=== PATIENT | female | born 1970 | race American Indian/Alaskan Native ===

== ENCOUNTER 2017-03-06 20:45 | Emergency (ER) | payer BC ==
[2017-03-06] MEDS ORDERED: DUONEB *Not for PRN Use IH ONE ×2 (21:47→22:00)
[2017-03-07] MEDS ORDERED: MAGNESIUM SULFATE IV ONE (03:10)
[2017-03-07] MEDS ORDERED: MAGNESIUM SULFATE 2GM/50ML 2 GM/50 ML BAG IV ONE (03:15)
--- NOTE | 2017-03-07 03:17 | Emergency Department Report ---
ED Asthma HPI - General Chief Complaint: Adult Asthma Stated Complaint: SANA/CHEST PAIN/ ASTHMA Time Seen by Provider: 03/07/17 03:01 Source: patient Mode of arrival: Ambulatory Limitations: No Limitations - History of Present Illness MD Complaint: "asthma attack", shortness of breath, wheezing -: Gradual, week(s) Asthma History: childhood onset, history of frequent attac Associated Symptoms: dry cough Treatments Prior to Arrival: inhaled bronchodilator, inhaled steroid - Related Data Home Medications Medication Instructions Recorded Confirmed Last Taken Ibuprofen/Famotidine [Duexis 1 tab PO Q8HR PRN 05/16/13 03/07/17 05/13/13 800-26.6 mg Tablet] Hydroxychloroquine [Plaquenil] 200 mg PO QDAY 02/10/16 03/07/17 Unknown Budesoni/Formotero 160-4.5(Nf) 2 puff IH BID 03/07/17 03/07/17 Unknown [Symbicort 160-4.5 (Nf)] Budesonide [Pulmicort] 0.5 mg IH Q12HR 03/07/17 03/07/17 Unknown Previous Rx's Medication Instructions Recorded Last Taken Type Montelukast [Singulair] 10 mg PO QPM #30 tablet 02/10/16 Unknown Rx Prednisone [predniSONE (Jenae) ER 40 mg PO QDAY #40 tablet. 03/07/17 Unknown Rx TAB] Allergies Allergy/AdvReac Type Severity Reaction Status Date / Time Penicillins Allergy Swelling Verified 05/16/13 07:35 powder in gloves AdvReac Itching Uncoded 05/16/13 07:35 ED Review of Systems ROS: Stated complaint: SANA/CHEST PAIN/ ASTHMA Other details as noted in HPI Comment: All other systems reviewed and negative Constitutional: denies: chills, fever Respiratory: cough, shortness of breath, wheezing Cardiovascular: denies: palpitations Gastrointestinal: denies: abdominal pain, nausea Genitourinary: denies: dysuria, frequency ED Past Medical Hx - Past Medical History Previous Medical History?: Yes Hx Arthritis: Yes Hx Asthma: Yes Additional medical history: connective tissue disease - Surgical History Past Surgical History?: Yes Additional Surgical History: 2 c sections - Social History Smoking Status: Never Smoker Substance Use Type: None - Medications Home Medications: Home Medications Medication Instructions Recorded Confirmed Last Taken Type Ibuprofen/Famotidine [Duexis 1 tab PO Q8HR PRN 05/16/13 03/07/17 05/13/13 History 800-26.6 mg Tablet] Hydroxychloroquine [Plaquenil] 200 mg PO QDAY 02/10/16 03/07/17 Unknown History Montelukast [Singulair] 10 mg PO QPM #30 tablet 02/10/16 03/07/17 Unknown Rx Budesoni/Formotero 160-4.5(Nf) 2 puff IH BID 03/07/17 03/07/17 Unknown History [Symbicort 160-4.5 (Nf)] Budesonide [Pulmicort] 0.5 mg IH Q12HR 03/07/17 03/07/17 Unknown History Prednisone [predniSONE (Jenae) ER 40 mg PO QDAY #40 tablet. 03/07/17 Unknown Rx TAB] ED Physical Exam - General Limitations: No Limitations General appearance: alert, in distress - Head Head exam: Present: normocephalic - Neck Neck exam: Present: normal inspection - Respiratory Respiratory exam: Present: respiratory distress, wheezes, rhonchi, decreased breath sounds, prolonged expiratory. Absent: rales, stridor, accessory muscle use - Cardiovascular Cardiovascular Exam: Present: regular rate, normal rhythm, normal heart sounds - Neurological Exam Neurological exam: Present: alert, oriented X3, CN II-XII intact - Skin Skin exam: Present: warm, intact ED Course Vital Signs 03/06/17 03/07/17 03/07/17 21:23 02:50 03:18 Temperature 98.6 F Pulse Rate 93 H Respiratory 24 17 Rate Blood Pressure 152/93 O2 Sat by Pulse 99 97 97 Oximetry 03/07/17 03:30 Temperature Pulse Rate 95 H Respiratory 14 Rate Blood Pressure 149/89 O2 Sat by Pulse 97 Oximetry - Reevaluation(s) Reevaluation #1: 03/07/17 04:13 Patient stated that she is feeling better last to follow UP with her PRIMARY CARE PHYSICIAN ED Medical Decision Making - Lab Data Result diagrams: 03/07/17 03:39 Critical care attestation.: If time is entered above; I have spent that time in minutes in the direct care of this critically ill patient, excluding procedure time. ED Disposition Clinical Impression: Asthma attack Disposition: DC-01 TO HOME OR SELFCARE Is pt being admited?: No Condition: Stable Prescriptions: Prednisone [predniSONE (Jenae) ER TAB] 40 mg PO QDAY #40 tablet. Referrals: PRIMARY CARE, [Primary Care Provider] - 3-5 Days
[2017-03-07] MEDS ORDERED: NACL 0.9% 1000 ML 1,000 ML IV ONE (03:28)
[2017-03-07 03:54] LABS: Hematocrit 39.5 % (30.3-42.9); Mean Corpuscular HGB Conc 33 % (30-34); Mean Corpuscular Hemoglobin 29 pg (28-32); Mean Corpuscular Volume 86 fl (79-97); Platelet Count 174 K/mm3 (140-440); Red Blood Count 4.58 M/mm3 (3.65-5.03); Red Cell Distribution Width 14.5 % (13.2-15.2); White Blood Count 7.7 K/mm3 (4.5-11.0)
[2017-03-07 04:12] LABS: Anion Gap 21 mmol/L; Blood Urea Nitrogen 14 mg/dL (7-17); Calcium 8.5 mg/dL (8.4-10.2); Carbon Dioxide 18 mmol/L (22-30); Chloride 99.3 mmol/L (98-107); Glucose 176 mg/dL (65-100); Sodium 134 mmol/L (137-145)
[2017-03-07 04:30] VITALS: BP 141/86
[2017-03-07 05:22] LABS: Anisocytosis RARE; Basophils % (Manual) 0 % (0.0-1.8); Blastocytes % (Manual) 0 %; Eosinophils % (Manual) 0 % (0.0-4.3); Large Platelets Few
[2017-03-07 05:23] LABS: Diff Status Complete
--- NOTE | 2017-03-07 09:59 | XRay Report ---
CHEST TWO VIEWS: 03/07/17 CLINICAL: Shortness of breath. COMPARISON: 03/23/13 FINDINGS: Normal heart and pulmonary vasculature. The lungs are clear except for mild left lower lobe subsegmental atelectasis versus scar. No airspace disease or pleural effusion. The bones and soft tissues are normal. IMPRESSION: Mild left lower lobe subsegmental atelectasis.No CHF or pneumonia.
== END 2017-03-07 05:00 | disposition home or self-care (01) ==
LOC: ED 20:45
DX: J45.909 Unspecified asthma, uncomplicated (principal); M19.90 Unspecified osteoarthritis, unspecified site; Z88.0 Allergy status to penicillin
CPT/HCPCS: 36415; 71020; 80048; 84484; 85007; 85025; 93005; 93010; 96365; 96372; 99284; J2930; J3475; J7030